=== PATIENT | male | born 1995 | race Caucasian/White ===

== ENCOUNTER 2020-10-15 19:29 | Emergency (ER) | payer SELFPAY ==
--- NOTE | 2020-10-15 19:30 | XR_ITS ---
WS: [id number] Exam: XR wrist RT min 3V* [id number] Date/Time of Exam: 10/15/2020 7:34 PM Reason For Exam: injury There are no fractures, soft tissue swelling, or unusual calcifications. The wrist shows normal bony alignment. There is no irregularity of the bony architecture. XR/XR wrist RT min 3V* [id number] IMPRESSION: Negative right wrist.
[2020-10-15 21:10] VITALS: BP 126/74; PULSE 87; RESP 18; TEMP 36.8; O2SAT 99; BMI 24.6
[2020-10-15 23:37] VITALS: BP 156/92; PULSE 77; RESP 18; O2SAT 99
--- NOTE | 2020-10-15 23:41 | XR_ITS ---
WS: [id number] Exam: XR hand RT min 3V* [id number] Date/Time of Exam: 10/15/2020 11:54 PM Reason For Exam: thumb injury No fracture or dislocation. No soft tissue foreign bodies are seen. XR/XR hand RT min 3V* [id number] IMPRESSION: 1. No acute fracture identified.
--- NOTE | 2020-10-15 23:42 | ED_ITS ---
HPI - Extremity Problem General: Chief complaint: Extremity Injury, Upper Stated complaint: right wrist injury Time Seen by Provider: 10/15/20 23:38 Source: patient Mode of arrival: ambulatory Limitations: no limitations History of Present Illness: HPI Narrative: 24-year-old male states that earlier today he was working on a truck and had a leaf spring pull his thumb back to his wrist. He states he had a loud pop in his thumb and had immediate pain. He states that since then he has had difficulty moving his thumb. He states he had pain in the thumb as well he rates a 2 out of 10. Denies any other injuries. Associated symptoms: Deny chest pain, fever(s) or rash Review of Systems Const: Denies: fever(s), chills, body aches or change in appetite Eyes: Denies: blurry vision or eye discomfort ENMT: Denies: throat pain or dental pain Card: Denies: chest pain Resp: Denies: dyspnea GI: Denies: abdominal pain, nausea, vomiting or diarrhea : Denies: dysuria Musc: Reports: extremity pain Skin/Breast: Denies: rash Neuro: Denies: headache(s) Psych: Denies: depression Denis/Lymph: Denies: easy bruising All/Imm: Denies: urticaria Physical Exam Const: COMMON NORMALS: no acute distress, patient oriented x3 and healthy appearing HENMT: COMMON NORMALS: normocephalic and atraumatic HEAD & SCALP: normocephalic and atraumatic Eye: COMMON NORMALS: Equal, round and reactive pupils present and EOMs intact bilaterally PUPIL: Yes Equal, round and reactive pupils present Neck/C-Spine: COMMON NORMALS: full ROM and supple Chest: COMMONS NORMALS: normal inspection of the chest and normal palpation of entire chest wall Resp: COMMON NORMALS: normal respiratory effort, No retractions, No use of accessory muscles and clear to auscultation bilaterally AUSCULTATION: clear to auscultation bilaterally Cardio: COMMON NORMALS: regular rate, regular rhythm and No murmurs present (Cardio) RATE: regular rate RHYTHM: regular rhythm GI: COMMON NORMALS: Normal to inspection, nondistended, normoactive bowel sounds present, Soft to palpation, non-tender and no masses PALPATION: Yes Soft to palpation Extremity: COMMON NORMALS: normal to inspection NARRATIVE EXTREMITY EXAM: He has slight pain at the base of his thumb. He does have difficulty with extension and flexion of his thumb. Neuro: COMMON NORMALS: patient oriented x3, moves all extremities and no focal motor deficits Psych: COMMON NORMALS: mental status grossly normal, Normal thought process present and cooperative THOUGHT PROCESS: Normal thought process present Skin: COMMON NORMALS: no rashes or lesions noted and no wounds GENERAL SKIN EXAM: no rashes or lesions noted Course Vital Signs: Vital signs: Vital Signs Temperature 98.3 F 10/15/20 21:10 Pulse Rate 77 10/15/20 23:37 Respiratory Rate 18 10/15/20 23:37 Blood Pressure 156/92 10/15/20 23:37 Pulse Oximetry 99 10/15/20 23:37 MDM - Extremity (Nontraumatic) MDM Narrative: Medical decision making narrative: Patient presents here with likely thumb injury and a possible gamekeeper's thumb. Patient placed in a thumb spica and will have him follow-up with orthopedics. Imaging Data^: xr r hand: Attestation: I personally reviewed and interpreted this imaging study as follows: My impression: no acute abnormality xr r wrist: Attestation: I personally reviewed and interpreted this imaging study as follows: My impression: no acute fx Discharge Plan Discharge Patient Disposition: Home Clinical Impression: Sprain of right thumb Qualifiers: Encounter type: initial encounter Sprain of finger site: unspecified site Qu alified Code(s): S63.601A - Unspecified sprain of right thumb, initial encounter Condition: Stable Prescriptions: New Naprosyn 500 mg tablet 500 mg PO BID PRN (Reason: pain) Qty: 20 RF: 0 Discharge Orders: Discharge ED (Routine); Ordered 10/16/20 Ordered By: Lita Galindo Referrals: Judson Stanford DO [Physician] - 1-3 days Discharge Diet: Advance as tolerated Discharge Activity: Resume usual activity Patient Instructions: Skier's Thumb (ED) Coding Level of Care Code ED Engine [employer] Supervisor for Ana Luisa Mckinnon Exam Comprehensive
--- NOTE | 2020-10-16 09:31 | DCPLANNER ---
commercial loan manager had message to schedule a follow up appointment for patient with ortho for a thumb injury. commercial loan manager called the ortho clinic, spoke with Sandi, gave clinic patients information. commercial loan manager was told that patients information would be printed and reviewed. Clinic will call patient with appointment information.
--- NOTE | 2020-10-17 07:36 | DCPLANNER ---
Patient has a follow up appointment scheduled for Saturday, October 17, 2020 at 9:[address] Sidhu at [facility]. Clinic will call patient with appointment information.
--- NOTE | 2021-01-09 07:24 | DCPLANNER ---
Patient had a follow up appointment scheduled for 10.17.[address] Sidhu at [facility] - patient did attend appointment.
== END 2020-10-16 00:35 | disposition home or self-care (01) ==
PROVIDERS: Emergency Provider Emergency Medicine
DX: S63.601A Unspecified sprain of right thumb, initial encounter (principal); X50.9XXA Other and unspecified overexertion or strenuous movements or postures, initial encounter
CPT/HCPCS: 73110; 73130; 99283

== ENCOUNTER 2020-10-17 10:09 | Outpatient (CLI) | payer SELFPAY | END 2020-10-17 10:10 | disposition home or self-care (01) | LOC: SPT 10:09 | PROVIDERS: Visit Provider Orthopaedic Surgery | DX: Z46.89 Encounter for fitting and adjustment of other specified devices (principal); S63.681D Other sprain of right thumb, subsequent encounter; X58.XXXD Exposure to other specified factors, subsequent encounter | CPT/HCPCS: L3923 ==

== ENCOUNTER 2024-01-29 14:17 | Outpatient (CLI) | payer OTHER, SELFPAY ==
--- NOTE | 2024-01-29 14:23 | XR_ITS ---
WS: [id number] XR thoracic spine 3V* [id number] REASON FOR EXAM: M54.9 - Dorsalgia, unspecified FINDINGS: Relatively normal thoracic spine curvatures. No vertebral body abnormality. Disc spaces are intact and relatively well preserved. There are several vertebrae in the mid and lowe r thoracic spine that demonstrate minimal osteophytosis. XR/XR thoracic spine 3V* [id number] IMPRESSION: Minimal degenerative spondylosis.
--- NOTE | 2024-01-29 14:23 | XR_ITS ---
WS: [id number] XR lumbar spine 2-3V* [id number] REASON FOR EXAM: M54.50 - Low back pain, unspecified FINDINGS: Normal lumbar spine curvatures. No significant vertebral body abnormality. Intervertebral disc spaces L1-L5 are intact and relatively well preserved. There is mild narrowing of the L5-S1 disc space. No spondylolysis identified. No significant spondylolisthesis. XR/XR lumbar spine 2-3V* [id number] IMPRESSION: Minimal degenerative spondylosis as above.
== END 2024-01-29 14:18 | disposition home or self-care (01) ==
LOC: RAD 14:19
PROVIDERS: PCP Nurse Practitioner Family; Visit Provider Nurse Practitioner Family
DX: M54.50 Low back pain, unspecified (principal); M54.9 Dorsalgia, unspecified
CPT/HCPCS: 72072; 72100

== ENCOUNTER 2024-02-05 06:00 | Outpatient (CLI) | payer OTHER, SELFPAY | END 2024-02-05 06:01 | disposition home or self-care (01) | LOC: RAD 03-08 07:25 | PROVIDERS: PCP Nurse Practitioner Family; Visit Provider Nurse Practitioner Family | DX: M25.50 Pain in unspecified joint (principal) | CPT/HCPCS: 85651; 86038; 86431 ==

== ENCOUNTER 2025-05-15 14:45 | Outpatient (CLI) | payer BC, MEDICAID, SELFPAY ==
--- NOTE | 2025-05-15 14:50 | XRR_ITS ---
PROCEDURE INFORMATION: Exam: XR Left Hand Exam date and time: 05/15/2025 3:11 PM Age: 29 years old Clinical indication: Pain; Hand; Left; Additional info: M25.449 - effusion, unspecified hand TECHNIQUE: Imaging protocol: Radiologic exam of the left hand. Views: 3 or more views. COMPARISON: CR XR wrist LT min 3V* [id number] 05/15/2025 3:11 PM FINDINGS: Bones/joints: No acute displaced fracture or dislocation. Joint spaces are preserved. Soft tissues: Unremarkable. XR/XR hand LT min 3V* [id number] IMPRESSION: No acute findings.
--- NOTE | 2025-05-15 14:50 | XRR_ITS ---
PROCEDURE INFORMATION: Exam: XR Left Wrist Exam date and time: 05/15/2025 3:11 PM Age: 29 years old Clinical indication: Pain; Wrist; Left; Additional info: M25.539 - pain in unspecified wrist TECHNIQUE: Imaging protocol: Radiologic exam of the left wrist. Views: 3 or more views. COMPARISON: CR XR hand LT min 3V* [id number] 05/15/2025 3:11 PM FINDINGS: Bones/joints: No acute displaced fracture or dislocation. Joint spaces are preserved. Soft tissues: Unremarkable. XR/XR wrist LT min 3V* [id number] IMPRESSION: No acute findings.
== END 2025-05-15 14:46 | disposition home or self-care (01) ==
LOC: RAD 14:47
PROVIDERS: PCP Nurse Practitioner Family; Visit Provider Nurse Practitioner Family
DX: M25.442 Effusion, left hand (principal); M25.532 Pain in left wrist
CPT/HCPCS: 73110; 73130

== ENCOUNTER 2025-06-05 12:58 | Outpatient (CLI) | payer BC, MEDICAID, SELFPAY ==
--- NOTE | 2025-06-05 13:00 | MRR_ITS ---
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 Exam focused on the wrist. COMPARISON: CR XR wrist LT min 3V* [id number] 05/15/2025 3:11 PM FINDINGS: Bones/joints: There is patchy increased T2 reactive marrow edema within the base of the 2nd metacarpal. This is also seen to a much lesser extent in the base of the 3rd and 4th metacarpal. There is patchy reactive marrow edema within the capitate and hamate. There is also subtle reactive marrow edema of the dorsal articular margin of the trapezoid with the base of the 2nd metacarpal. There is no discrete fracture plane appreciated. Mild degenerative osteophytosis is present at the base of the thumb/1st carpometacarpal articulation. There are no erosions identified. Scapholunate ligament: Unremarkable. No tear. Lunotriquetral ligament: Unremarkable. No tear. Triangular fibrocartilage complex: Unremarkable. No tear. Flexor compartment tendons: Unremarkable. No tear. Extensor compartment tendons: There is a trace amount fluid within the extensor digitorum tendon to the 4th digit seen at the level of the base of the metacarpal. Soft tissues: There is a small ganglion at the dorsal margin of the wrist. This is localized at the capitate articulation with the base of the 3rd metacarpal. This measures 11 x 8 x 6 mm. There is some minimal dorsal wrist soft tissue edema. MR/MR wrist LT wo con* [id number] IMPRESSION: 1. Multifocal areas of patchy increased T2 signal as described. These likely are posttraumatic given the history/posttraumatic contusion/marrow edema. 2. Dorsal wrist ganglion at the articulation of the capitate and base of the 3rd metacarpal. 3. Mild dorsal wrist soft tissue edema.
--- NOTE | 2025-06-05 13:45 | MRR_ITS ---
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 Exam focused on the hand. COMPARISON: CR XR hand LT min 3V* [id number] 05/15/2025 3:11 PM FINDINGS: Bones/joints: There is a small cyst or enchondroma within the head of the 3rd metacarpal. There is mild patchy reactive increased T2 marrow signal within the base of the 2nd metacarpal and to a lesser extent in the base of the 3rd and 4th metacarpal. There is also reactive marrow edema suggested within the distal margin of the capitate and hamate. This is at the edge of the [id number]. No discrete fracture plane is appreciated. There is a small ganglion at the dorsal edge of the capitate articulation with 3rd metacarpal measuring 10 x 9 x 6 mm. Collateral ligaments of digits: Unremarkable. No evidence of tear. Flexor compartment tendons: Unremarkable. No evidence of tear. Extensor compartment tendons: Unremarkable. No evidence of tear. Soft tissues: There is questionable soft tissue edema of the dorsum of the wrist versus artifact. Again this is at the edge of the field of view limiting evaluation. Other findings: There is minimal osteophytosis of the base of the thumb/1st carpometacarpal articulation. MR/MR hand LT wo con* [id number] IMPRESSION: 1. Nonspecific patchy reactive increased T2 marrow signal at the base of the 2nd through 4th metacarpals and within the capitate and hamate. Clinical history reports trauma. This may represent posttraumatic marrow edema. 2. Dorsal wrist ganglion at the 3rd metacarpal articulation with the capitate. 3. Questionable artifact versus dorsal wrist soft tissue edema. Consider follow-up MRI of the wrist for better detail evaluation of the carpal bones given the positioning on this exam at the edge of the [id number].
== END 2025-06-05 12:59 | disposition home or self-care (01) ==
LOC: RAD 12:59
PROVIDERS: PCP Nurse Practitioner Family; Visit Provider Nurse Practitioner Family
DX: M12.542 Traumatic arthropathy, left hand (principal); M67.432 Ganglion, left wrist; M25.432 Effusion, left wrist
CPT/HCPCS: 73218; 73221